=== PATIENT | male | born 1995 | race Caucasian/White ===

== ENCOUNTER 2024-06-07 12:36 | Emergency (ER) | payer SELFPAY ==
[2024-06-07 12:37] VITALS: BP 137/84
[2024-06-07 12:59] LABS: % Basophils 0.2 % (0-2); % Eosinophils 0.4 % (0-6); % Immature Granulocytes 0.2 % (0-0.5); % Lymphocytes 31.6 % (20.5-51.1); % Monocytes 6.5 % (1.7-9.3); % Neutrophils 61.1 % (42.2-75.2); Absolute Lymphocytes 2.7 10^3/uL (1.2-3.4); Absolute Monocytes 0.6 10^3/uL (0.1-0.6); Absolute Neutrophils 5.2 10^3/uL (1.4-6.5); Hemoglobin 15.5 g/dL (13.0-18.0); Mean Corp Hgb Conc. 35.2 g/dL (33.0-37.0); Mean Corpuscular Hgb 29.9 pg (27.0-31.0); Mean Corpuscular Volume 84.8 fL (80.0-94.0); Mean Platelet Volume 10.7 fL (7.4-10.4); Nucleated Red Blood Cells % 0 % (-); Platelet Count 294 10^3/uL (130-400); Red Blood Cell Count 5.19 10^6/uL (4.70-6.10); Red Cell Dist. Width 12.3 % (11.5-14.5); White Blood Cell Count 8.6 10^3/uL (4.8-10.8)
--- NOTE | 2024-06-07 12:59 | ED.GENMED ---
History of Present Illness
General
Chief Complaint: Fainting/Passed Out
Source: patient
Time Seen by Provider: 06/07/24 12:58
History of Present Illness
History of Present Illness:
28yoM with no known medical problems presenting for evaluation after a syncopal episode yesterday. Episode occurred around 11am yesterday. He was standing during his significant other's doctors appt. He was standing for about 10-15 minutes. He
suddenly started to feel lightheaded and his vision went blurry. He said 3-5 seconds later he passed out. Episode was witnessed. +Head strike. He was reportedly unconscious for about 3 minutes. Patient reports some mild dizziness today but is
otherwise feeling well. He denies any chest pain or shortness of breath.
Past History
Past History
ED Past Medical History: None
ED Past Surgical History: None
Social History
Tobacco: Non-smoker
Alcohol: Occasional
Drug: None
Personal: Single
Living: with family
Employment: Employed
Family History
Family History: Other (Noncontributory)
Phy Exam
General Physical Exam
General Presentation: well appearing and no apparent distress
General age: appears stated age
General Skin: warm and dry
General Habitus: normal
General Mental: alert
ENT Exam
ENT Exam: TM's normal (No hemotympanum) and normocephalic
Additional ENT: No external signs of head trauma
Eye Exam
Eye Exam: PERRL
Cardiovascular Exam
Cardiovascular Exam: regular rate/rhythm and no murmur
Pulmonary Exam
Pulmonary Exam: lungs clear, no respiratory distress, no rales, no crackles, no rhonchi and no wheezing
Jannie Coma Scale
Eye Opening: Spontaneous
Verbal Response: Oriented
Motor Response: Obeys Commands
GCS Total Score: 15
Skin Exam
Skin Exam: normal color and warm/dry
Psychiatric Exam
Psychiatric Exam: normal mood/affect
Course
Orders/Labs/Results
Orders:
Orders
06/07/24 12:40
Electrocardiogram (*1) Urgent
Reason for Study: Syncope
EKG- Treatment ONCE
06/07/24 12:52
Complete Blood Count/With Diff Urgent
Comprehensive Metabolic Panel Urgent
06/07/24 13:10
Orthostatic VS- Treatment ONCE
Abnormal Lab Results
06/07/24
12:52
MPV 10.7 H fL
(7.4-10.4)
BUN 21 H mg/dl
(9-20)
Glucose 104 H mg/dl
(70-99)
06/07/24 12:52
06/07/24 12:52
Vital Signs
Initial and Last Documented VS:
Initial Vital Signs
Temp Pulse Resp BP Pulse Ox
98.9 F 66 16 137/84 98
06/07/24 12:37 06/07/24 12:37 06/07/24 12:37 06/07/24 12:37 06/07/24 12:37
Last Documented Vital Signs
Temp Pulse Resp BP Pulse Ox
98.9 F 76 16 126/83 97
06/07/24 12:37 06/07/24 14:15 06/07/24 14:15 06/07/24 14:00 06/07/24 14:15
MDM/Problems Addressed
Differential Diagnosis Includes:
28yoM here after a syncopal episode yesterday afternoon. He was standing for 10-15 minutes when he started to feel lightheaded with blurred vision prior to passing out. No CP/SOB. C/o mild dizziness currently. No known medical problems. He is
afebrile and hemodynamically stable. He is well appearing in no distress. Exam is reassuring. Differential diagnosis includes but is not limited to: orthostatic hypotension, vasovagal episode, less likely cardiogenic syncope
Initial ED plan: Check CBC, CMP, EKG, and orthostatic vital signs.
*EKG
Interpreted by ED Provider?: Yes
EKG Intrepretation Date: 06/07/24
Heart Rate: 62
Rate: normal
Rhythm: sinus and sinus arrhythmia
[place]: normal axis
Interval: normal interval
QRS Pattern: normal QRS
Ischemia: no ischemia
*Critical Care Note
Total Time (30-74mins, 75-104mins- exclusive of procedures): Not Applicable
Update Note
Update Note:
Labs unremarkable including normal hemoglobin, electrolytes, glucose. EKG shows NSR without ectopy or ischemic changes. Orthostatic vital signs negative. He is stable for discharge. Supportive care discussed. Advised f/u with PCP and ED return
precautions discussed. He expressed understanding and is agreeable to plan. Patient discharged in stable condition.
ED Attending Note
-
Portions of this chart may have been created with voice recognition software.� Occasional wrong word or��sound alike� substitutions may have occurred due to the inherent limitations of voice recognition software.
Discharge Plan
Departure
Patient Disposition: Home (Routine Discharge)
Date of Disposition: 06/07/24
Time of Disposition: 14:20
Patient with high blood pressure during this ER visit?: No
Discharge Problem:
Syncope
Instructions: Syncope (Fainting) (DC)
Prescriptions:
No Action
cephalexin 500 MG capsule
500 mg PO BID Qty: 20 0RF
amoxicillin-pot clavulanate [Augmentin] 1 EACH tablet
1 ea PO BID Qty: 20 0RF
amoxicillin-pot clavulanate 1 TABLET tablet
1 tab PO Q12 Qty: 14 0RF
Referrals:
[facility] [Provider Group]
[facility] [Outside]
NONE,* [Family Provider] -
Activity Restrictions/Additional Instructions:
Drink plenty of fluids.
Please follow-up with a family doctor. Return to the ER with any new or worsening symptoms.
Interventions
Interventions:
*Risk Screen - Suicide Last Done: 06/07/24 12:37
*General Assessment Last Done: 06/07/24 13:26
*Neglect/Abuse Screening Last Done: 06/07/24 12:37
ED- Fall Risk Assessment Last Done: 06/07/24 13:26
*ED COVID-19 Vaccine History Last Done: 06/07/24 13:26
*Nursing Disposition Last Done: 06/07/24 14:31
ED- Cardiac Assessment Last Done: 06/07/24 13:26
ED- Neurological Assessment Last Done: 06/07/24 13:26
Discharge Date and Time
Discharge Date/Time: 06/07/24 14:32
Print Language: GREENLANDIC
[2024-06-07 13:26] VITALS: BP 132/86; BP 137/85; BP 144/90; PULSE 55; PULSE 70; PULSE 76; BMI 29.9
[2024-06-07 13:27] LABS: ALT (SGPT) 21 U/L (0-50); AST (SGOT) 24 U/L (17-59); Alkaline Phosphatase 72 U/L (38-126); Blood Urea Nitrogen 21 mg/dl (9-20); Calcium 10.2 mg/dl (8.4-10.2); Carbon Dioxide 25 mmol/L (22-30); Chloride 103 mmol/L (98-107); Glucose 104 mg/dl (70-99); Sodium 140 mmol/L (135-145); Total Bilirubin 0.5 mg/dl (0.2-1.3); Total Protein 7.7 g/dl (6.3-8.2); eGFR > 60.00
[2024-06-07 13:28] VITALS: BP 144/90
[2024-06-07 13:30] VITALS: BP 137/85
[2024-06-07 13:31] VITALS: BP 132/86
[2024-06-07 14:00] VITALS: BP 126/83
== END 2024-06-07 14:32 | disposition home or self-care (01) ==
LOC: EMR 12:36
PROVIDERS: EMERGENCY PHYSICIAN Emergency Medicine
DX: R55 Syncope and collapse (principal); S06.9X1A Unspecified intracranial injury with loss of consciousness of 30 minutes or less, initial encounter; X58.XXXA Exposure to other specified factors, initial encounter; Y92.531 Health care provider office as the place of occurrence of the external cause
CPT/HCPCS: 99283; 80053; 85025; 93005

== ENCOUNTER 2025-05-16 09:04 | Emergency (ER) | payer SELFPAY ==
[2025-05-16 09:09] VITALS: BP 130/79
--- NOTE | 2025-05-16 10:00 | ED.GENMED ---
History of Present Illness
General
Chief Complaint: Ear Problem
Source: patient
Exam Limitations: none
Time Seen by Provider: 05/16/25 09:45
Nursing documentation reviewed up to this point in time: agreed with
History of Present Illness
History of Present Illness:
29-year-old male presenting to the emergency department today with concerns of pressure and discomfort to the left ear throughout the morning today. Denies any fevers chest pain shortness of breath or any additional concerns otherwise.
Past History
Past History
ED Past Medical History: None
ED Past Surgical History: None
Social History
Tobacco: Non-smoker
Alcohol: Occasional
Drug: None
Personal: Single
Living: with family
Employment: Employed
Family History
Family History: Other (Noncontributory)
Review of Systems
Review of Systems
Allergies reviewed?: Yes
All Other Systems: ROS reviewed and negative except as documented in HPI and ROS
Phy Exam
Physical Exam
Physical Exam:
GENERAL: Alert , in no apparent distress
EYE: pupils equal and reactive
NECK: Supple, no significant adenopathy.
ENT: Left ear with bulging tympanic membrane mild redness to the area no external ear tenderness or discomfort to palpation right ear appears normal o/p clr, mmm.
CARDIAC: Regular rate and rhythm .
LUNGS: Clear breath sounds bilaterally, no acute respiratory distress, no wheezes/rales/rhonchi
ABDOMEN: Soft, without focal tenderness, no r/g, no cvat
NEUROLOGICAL: Alert and oriented, no focal neuro deficits
SKIN: Warm and dry, skin intact.
MUSCULOSKELETAL: No edema, well perfused.
PSYCH: Normal and appropriate interaction.
Course
Vital Signs
Initial and Last Documented VS:
Initial Vital Signs
Temp Pulse Resp BP Pulse Ox
98.3 F 79 16 130/79 99
05/16/25 09:09 05/16/25 09:09 05/16/25 09:09 05/16/25 09:09 05/16/25 09:09
Last Documented Vital Signs
Temp Pulse Resp BP Pulse Ox
98.3 F 79 16 130/79 99
05/16/25 09:09 05/16/25 09:09 05/16/25 09:09 05/16/25 09:09 05/16/25 10:01
MDM/Problems Addressed
MDM/Problems Addressed:
29-year-old male presenting to the emergency department today with concerns of left ear discomfort. He was found to have an effusion on examination to the left side right-sided looks normal. He was written for Flonase to help with inflammation and
given an antibiotic if symptoms are persisting or if he develops a fever otherwise advised for close outpatient follow-up. Return precautions given.
*Pulse Oximetry
SaO2: 99
Oxygen Mode of Delivery: Room air
Patient hypoxic: no (99)
*Critical Care Note
Total Time (30-74mins, 75-104mins- exclusive of procedures): Not Applicable
ED Attending Note
-
Portions of this chart may have been created with voice recognition software.� Occasional wrong word or��sound alike� substitutions may have occurred due to the inherent limitations of voice recognition software.
Discharge Plan
Departure
Patient Disposition: Home (Routine Discharge)
Date of Disposition: 05/16/25
Time of Disposition: 10:00
Patient with high blood pressure during this ER visit?: No
Condition: Good
Covid-19: Not Applicable
Discharge Problem:
Acute effusion of left ear
Instructions: Serous Otitis Media (DC)
Prescriptions:
New
amoxicillin 500 mg capsule
1,000 mg PO Q12H 7 Days Qty: 28 0RF
fluticasone propionate [24 Hour Allergy Relief] 50 mcg/actuation spray,suspension
2 spray intranasal BID Qty: 16 0RF
No Action
cephalexin 500 MG capsule
500 mg PO BID Qty: 20 0RF
amoxicillin-pot clavulanate [Augmentin] 1 EACH tablet
1 ea PO BID Qty: 20 0RF
amoxicillin-pot clavulanate 1 TABLET tablet
1 tab PO Q12 Qty: 14 0RF
Activity Restrictions/Additional Instructions:
You came to the emergency department today with concerns of discomfort to your ear. You are found to have an effusion of your ear. Please use the Flonase to help with reducing inflammation to allow this to drain and also take ibuprofen 600 mg
every 6 hours to help with discomfort and inflammation. You can also take the antibiotic if symptoms progress or if you develop a fever. Please follow close with your primary care doctor in the next 1 to 2 weeks to ensure this is improving
properly. Return for any worsening, new or concerning symptoms.
Interventions
Interventions:
*Nursing Disposition Last Done: 05/16/25 10:56
Discharge Date and Time
Discharge Date/Time: 05/16/25 10:58
Print Language: ROMANSH
== END 2025-05-16 10:58 | disposition home or self-care (01) ==
LOC: EMR 09:04
PROVIDERS: EMERGENCY PHYSICIAN Emergency Medicine
DX: H65.92 Unspecified nonsuppurative otitis media, left ear (principal)
CPT/HCPCS: 99283